=== PATIENT | male | born 1940 | race Caucasian/White ===

== ENCOUNTER 2023-11-02 10:02 | Day surgery (SDC) | payer MEDICARE ==
[~2023-11-02] VITALS: Ht 165.1 cm; Wt 77.8 kg
[~2023-11-02 10:02] MED LIST: ECOT81TA5 PO; LEVO75TA4 PO; LISI20TA33 PO; PHENYLEPHRINE 10% OPHTH SOL 5ML OS PRN; SIMV20TA22 PO; TAMS1CAP17 PO; fentaNYL 100 MCG/2 ML INJECTION As Ordered ONE
[2023-11-02] MEDS: OFLOXACIN 0.3 % (OCUFLOX) OPTH SOL 5ML OS ONE (11:38)
[2023-11-02] MEDS: LIDOCAINE 3.5 % 1ML OPHTH TOPICAL GEL OU ONE (11:39)
[2023-11-02] MEDS: ATROPINE SULFATE 1% OPHTH SOLN 2ML BTL OS SCH (11:39)
[2023-11-02] MEDS: PHENYLEPHRINE 2.5% OPHTH SOL 2ML OS SCH (11:39)
[2023-11-02] MEDS: TROPICAMIDE 1% OPHTH SOLN 15ML OS SCH (11:39)
[2023-11-02] MEDS: CEFUROXIME 1MG/0.1ML INTRACAMERAL INJ As Ordered ONE (12:30)
[2023-11-02] MEDS: LIDOCAINE 1% SDV 5ML VIAL As Ordered ONE (12:30)
[2023-11-02] MEDS: BSS IRRIG/VANCO(10MG)/TOBRA(5MG)/EPINEPH(1:1000-0.5CC)500ML BAG-ORONLY As Ordered ONE (12:30)
[2023-11-02 12:45] VITALS: BP 142/75; TEMP 97.4; O2SAT 99
== END 2023-11-02 13:00 | disposition home or self-care (01) ==
LOC: M SDC 10:02
PROVIDERS: ATTEND Ophthalmology
DX: H25.12 Age-related nuclear cataract, left eye (principal); I10 Essential (primary) hypertension; E78.5 Hyperlipidemia, unspecified; E03.9 Hypothyroidism, unspecified; J44.9 Chronic obstructive pulmonary disease, unspecified; Z79.899 Other long term (current) drug therapy
CPT/HCPCS: 66984; J0697; J3010; V2632

== ENCOUNTER 2023-11-09 11:42 | Day surgery (SDC) | payer MEDICARE ==
[~2023-11-09] VITALS: Ht 165.1 cm; Wt 77.9 kg
[~2023-11-09 11:42] MED LIST changes: +PHENYLEPHRINE 10% OPHTH SOL 5ML OD PRN; -PHENYLEPHRINE 10% OPHTH SOL 5ML OS PRN; -fentaNYL 100 MCG/2 ML INJECTION As Ordered ONE
[2023-11-09] MEDS ORDERED: MIDAZOLAM INJ 2MG/2ML VIAL As Ordered ONE (13:13)
[2023-11-09] MEDS ORDERED: fentaNYL 100 MCG/2 ML INJECTION As Ordered ONE (13:14)
[2023-11-09] MEDS: OFLOXACIN 0.3 % (OCUFLOX) OPTH SOL 5ML OD ONE (13:30)
[2023-11-09] MEDS: ATROPINE SULFATE 1% OPHTH SOLN 2ML BTL OD SCH (13:49)
[2023-11-09] MEDS: LIDOCAINE 3.5 % 1ML OPHTH TOPICAL GEL OU ONE (13:49)
[2023-11-09] MEDS: PHENYLEPHRINE 2.5% OPHTH SOL 2ML OD SCH (13:49)
[2023-11-09] MEDS: TROPICAMIDE 1% OPHTH SOLN 15ML OD SCH (13:49)
[2023-11-09] MEDS: CEFUROXIME 1MG/0.1ML INTRACAMERAL INJ As Ordered ONE (14:14)
[2023-11-09] MEDS: BSS IRRIG/VANCO(10MG)/TOBRA(5MG)/EPINEPH(1:1000-0.5CC)500ML BAG-ORONLY As Ordered ONE (14:14)
[2023-11-09] MEDS: LIDOCAINE 1% SDV 5ML VIAL As Ordered ONE (14:15)
[2023-11-09 14:30] VITALS: BP 133/78; TEMP 97.3; O2SAT 95
== END 2023-11-09 14:53 | disposition home or self-care (01) ==
LOC: M SDC 11:42
PROVIDERS: ATTEND Ophthalmology
DX: H25.11 Age-related nuclear cataract, right eye (principal); I10 Essential (primary) hypertension; E03.9 Hypothyroidism, unspecified; E78.00 Pure hypercholesterolemia, unspecified; Z79.899 Other long term (current) drug therapy; Z79.82 Long term (current) use of aspirin; Z79.890 Hormone replacement therapy; Z98.42 Cataract extraction status, left eye; Z96.1 Presence of intraocular lens
CPT/HCPCS: 66984; J0697; J2250; J3010; V2632

== ENCOUNTER → 2025-01-08 | Outpatient (CLI) | payer MEDICARE ==
[~2025-01-08] MED LIST changes: +AMIO100T4; +CALCTAB38 PO; +CEFU1TAB22; +COLA100C5 PO; +FINA5TAB2; +METO1TAB87; +MIDO5TA; +OXYC-517 PO; -PHENYLEPHRINE 10% OPHTH SOL 5ML OD PRN; +POLY17PO10 PO; +PRAV20TA78; +SPIR-10; +TAMS1CAP17; +THERTAB52 PO
== END ==
LOC: M RAD 16:23
PROVIDERS: ATTEND Student in an Organized Health Care Education/Training Program
DX: R91.8 Other nonspecific abnormal finding of lung field (principal); J90 Pleural effusion, not elsewhere classified

== ENCOUNTER 2025-01-15 02:59 | Inpatient (IN) | payer MEDICARE ==
[~2025-01-15] VITALS: Ht 162.6 cm; Wt 71.4 kg
[~2025-01-15 02:59] MED LIST changes: +AMIO100T4 PO; +FINA5TAB2 PO; +METO1TAB87 PO; +MIDO5TA PO; +PRAV20TA78 PO; +SPIR-10 PO
[2025-01-15] MEDS: LEVOTHYROXINE 75 MCG TABLET (0.075 MG) PO SCH (06:00)
[2025-01-15 06:54] LABS: BASO # 0.0 10^3/uL (0.0-0.2); BASO % 0.2 % (0.0-1.0); EOS # 0.0 10^3/uL (0.0-0.5); EOS % 0.3 % (0.0-3.0); LYMPH # 0.8 10^3/uL (1.5-5.0); LYMPH % 9.3 % (24.0-44.0); MONO # 0.5 10^3/uL (0.0-0.8); MONO % 5.4 % (2.0-8.0); NEUTROPHILS # 7.3 10^3/uL (1.5-8.5); NEUTROPHILS % 84.3 % (36.0-66.0); PLATELET COUNT, AUTOMATED 307 10^3/uL (150-450)
[2025-01-15 07:06] LABS: CK-MB VALUE MASS 1.1 NG/ML (<3.6)
[2025-01-15 07:07] LABS: ALT/SGPT 13.0 U/L (7.0-40); AST/SGOT 21.0 U/L (<34); CALCIUM LEVEL 8.8 MG/DL (8.3-10.6); CARBON DIOXIDE LEVEL 25.0 MMOL/L (20-31); CHLORIDE LEVEL 99.0 MMOL/L (98-107); CREATININE FOR GFR 1.16 MG/DL (0.70-1.30); GLOMERULAR FILTRATION RATE 61.7 (>35); MAGNESIUM LEVEL 1.7 MG/DL (1.8-2.4); POTASSIUM SERUM 4.8 MMOL/L (3.5-5.1); SODIUM LEVEL 134.0 MMOL/L (136-145)
[2025-01-15 07:08] LABS: CPK CREATINE PHOSPHOKINASE 20.0 U/L (46-171); MB/CK RELATIVE INDEX 5.5 (< OR =4)
[2025-01-15 08:31] LABS: INR 0.99
[2025-01-15 08:34] LABS: CK-MB VALUE MASS 1.2 NG/ML (<3.6); CPK CREATINE PHOSPHOKINASE 18.0 U/L (46-171); MB/CK RELATIVE INDEX 6.66 (< OR =4)
[2025-01-15] MEDS ORDERED: ISOVUE-370 76% 100 ML VIAL As Ordered ONE (08:38)
[2025-01-15] MEDS: PANTOPRAZOLE 40MG VIAL IV ONE (09:57)
[2025-01-15] MEDS: NS (Normal Saline) 0.9% 1,000 ML IV SCH (09:57)
[2025-01-15] MEDS: SUCRALFATE SUSP 1GM/10ML UD PO ONE (09:57)
[2025-01-15 10:11] LABS: VENOUS BASE EXCESS 1.8 (-2.0-2.0); VENOUS HCO3 26.9 MMOL/L (23.0-27.0); VENOUS O2 SATURATION 72.6 % (60.0-80.0); VENOUS PARTIAL PRESSURE CO2 44.3 mmHg (38.0-50.0); VENOUS PARTIAL PRESSURE O2 37.5 mmHg (30.0-50.0); VENOUS PH 7.402 UNITS (7.330-7.430); VENOUS STANDARD HCO3 25.6 MMOL/L; VENOUS TOTAL CO2 28.3 MMOL/L (24.0-28.0)
[2025-01-15] MEDS: IPRATROPIUM 0.5 MG/ALBUTEROL 2.5 MG INH SOL UD 3 ML NEB PRN (10:22)
[2025-01-15] MEDS ORDERED: TAMS-18 PO (10:23)
[2025-01-15] MEDS ORDERED: METO25TA4 PO (10:23)
[2025-01-15] MEDS ORDERED: OXYC-517 PO (10:23)
[2025-01-15] MEDS ORDERED: APAP325T4 PO (10:23)
[2025-01-15] MEDS ORDERED: SPIR-10 PO (10:23)
[2025-01-15] MEDS ORDERED: FINA5TAB2 PO (10:23)
[2025-01-15] MEDS ORDERED: MULTTAB61 PO (10:23)
[2025-01-15] MEDS ORDERED: PRAV20TA78 PO (10:23)
[2025-01-15] MEDS ORDERED: AMIO100T4 PO (10:23)
[2025-01-15] MEDS ORDERED: CALCTAB89 PO (10:23)
[2025-01-15] MEDS ORDERED: MIDO5TA PO (10:23)
[2025-01-15] MEDS ORDERED: HOME MED LIST COMPLETE! XX SCH (10:25)
[2025-01-15 11:28] LABS: CHOLESTEROL LEVEL 115.0 MG/DL (<200); CHOLESTEROL RISK RATIO 2.71 (<5); LDL CHOLESTEROL 54.2 MG/DL (<100); NON-HDL-C 72.6 MG/DL; TRIGLYCERIDES LEVEL 92.0 MG/DL (<150)
[2025-01-15] MEDS ORDERED: IPRATROPIUM 0.5 MG/ALBUTEROL 2.5 MG INH SOL UD 3 ML NEB PRN (11:45)
[2025-01-15] MEDS: SUCRALFATE SUSP 1GM/10ML UD PO SCH (12:00)
[2025-01-15] MEDS: SPIRONOLACTONE 25 MG TAB PO SCH (12:28)
[2025-01-15] MEDS: TAMSULOSIN 0.4 MG CAP PO SCH (12:28)
[2025-01-15] MEDS: ASPIRIN 81 MG ENTERIC TABLET PO SCH (12:29)
[2025-01-15] MEDS: FINASTERIDE 5 MG TAB PO SCH (12:30)
[2025-01-15 12:40] LABS: ESTIMATED AVERAGE GLUCOSE 117.0 MG/DL (60-110)
[2025-01-15] MEDS: AMIODARONE 100 MG TABLET PO SCH (13:25)
[2025-01-15] MEDS: IPRATROPIUM 0.5 MG/ALBUTEROL 2.5 MG INH SOL UD 3 ML NEB SCH (13:53)
[2025-01-15] MEDS: MIDODRINE 5 MG TAB PO SCH (14:06)
[2025-01-15] MEDS ORDERED: PROHANCE 279.3MG/ML 15ML VIAL As Ordered ONE (18:12)
[2025-01-15] MEDS: PRAVASTATIN 20 MG TAB PO SCH (20:09)
[2025-01-15] MEDS: PANTOPRAZOLE 40MG VIAL IV SCH (20:09)
[2025-01-15] MEDS: METOPROLOL TART 12.5 MG PER 1/2 TAB PO SCH (20:29)
[2025-01-15 21:42] VITALS: BP 113/59; TEMP 97.4; O2SAT 91
[2025-01-15] MEDS: HEPARIN SOD 5000 UNITS/ML 1 ML VIAL/SYRINGE SQ SCH (22:15)
[2025-01-15 23:30] VITALS: BP 100/54; TEMP 97.1; O2SAT 92
[2025-01-16 04:22] VITALS: BP 106/52; TEMP 97.6; O2SAT 91
[2025-01-16 05:40] VITALS: BP 109/59
[2025-01-16 05:42] LABS: PLATELET COUNT, AUTOMATED 226 10^3/uL (150-450)
[2025-01-16 06:19] LABS: ALT/SGPT 13.0 U/L (7.0-40); AST/SGOT 16.0 U/L (<34); CALCIUM LEVEL 7.9 MG/DL (8.3-10.6); CARBON DIOXIDE LEVEL 23.0 MMOL/L (20-31); CHLORIDE LEVEL 100.0 MMOL/L (98-107); CREATININE FOR GFR 1.2 MG/DL (0.70-1.30); GLOMERULAR FILTRATION RATE 59.3 (>35); POTASSIUM SERUM 4.3 MMOL/L (3.5-5.1); SODIUM LEVEL 134.0 MMOL/L (136-145)
[2025-01-16 07:43] VITALS: BP 108/58; TEMP 97.3; O2SAT 92
[2025-01-16 08:35] VITALS: BP 108/58
[2025-01-16] MEDS: ACETAMINOPHEN 325 MG TAB PO PRN (08:46)
[2025-01-16 12:21] VITALS: BP 108/59; TEMP 97.6; O2SAT 92
[2025-01-16 12:50] LABS: PH BODY FLUID 7.408 UNITS (NOT ESTABLISHED); SOURCE, BODY FLUID pH PLEURAL
[2025-01-16 12:55] LABS: APPEARANCE, BODY FLUID CLOUDY (CLEAR); PLEURAL FL COLOR AMBER (COLORLESS); SOURCE, BODY FLUID PLEURAL
[2025-01-16] MEDS ORDERED: SALIVA SUBSTITUTE BTL MT PRN (15:00)
[2025-01-16] MEDS ORDERED: POLYVINYL ALCOHOL OPHTH SOLN 15ML (LIQUITEARS) OU PRN (15:00)
[2025-01-16] MEDS ORDERED: LORazepam 0.5 MG TAB PO PRN (15:00)
[2025-01-16] MEDS ORDERED: ONDANSETRON 4MG ORAL DISINTEGRATING TAB PO PRN (15:00)
[2025-01-16] MEDS ORDERED: MORPHINE 10 MG/0.5 ML ORAL CONCENTRATE SOLUTION U/D SL PRN (15:00)
[2025-01-16] MEDS ORDERED: ATROPINE SULFATE 1% OPHTH SOLN 2 ML BTL SL PRN (15:00)
[2025-01-16] MEDS ORDERED: NOREPINEPHRINE 4 MG IN D5W 250 ML IVBAG (16 MCG/ML) As Ordered ONE (19:12)
[2025-01-17] MEDS: SENNA 8.6 MG TAB PO PRN (05:20)
[2025-01-17] MEDS ORDERED: IPRATROPIUM 0.5 MG/ALBUTEROL 2.5 MG INH SOL UD 3 ML NEB PRN (10:25)
[2025-01-17] MEDS ORDERED: ACETAMINOPHEN 325 MG TAB PO PRN (10:25)
[2025-01-19] MEDS: HYOSCYAMINE SULFATE 0.125 MG SUBL TABLET SL PRN (11:55)
[2025-01-20] MEDS: MIRALAX *UNIT DOSE* 17 GM PACKET PO PRN (16:24)
[2025-01-21] MEDS ORDERED: ONDA-282 PO (15:17)
[2025-01-21] MEDS ORDERED: ZOLP-532 PO (15:17)
[2025-01-21] MEDS ORDERED: MIRA33506 PO (15:17)
[2025-01-21] MEDS ORDERED: MORP1SOL5 PO (15:17)
[2025-01-21] MEDS ORDERED: HYOS125TA PO (15:17)
[2025-01-21] MEDS ORDERED: ATIV1TAB10 PO (15:17)
[2025-01-21] MEDS ORDERED: SUCR1ORA20 PO (15:17)
[2025-01-21] MEDS ORDERED: SUCR1TAB56 PO (18:30)
== END 2025-01-21 16:39 | disposition hospice, home (50) | DRG 180 ==
LOC: M ED 02:59 → M ED INP 10:03 → M PCU 21:36
PROVIDERS: ADMIT Internal Medicine; ATTEND Internal Medicine
PROC: 0W993ZZ Drainage of Right Pleural Cavity, Percutaneous Approach (ICD-10-PCS; principal; 2025-01-16 12:00)
DX: C34.11 Malignant neoplasm of upper lobe, right bronchus or lung (principal); I63.9 Cerebral infarction, unspecified; J98.11 Atelectasis; J91.0 Malignant pleural effusion; C79.31 Secondary malignant neoplasm of brain; R13.10 Dysphagia, unspecified; I48.0 Paroxysmal atrial fibrillation; N40.1 Benign prostatic hyperplasia with lower urinary tract symptoms; E03.9 Hypothyroidism, unspecified; I95.9 Hypotension, unspecified; G89.3 Neoplasm related pain (acute) (chronic); Z51.5 Encounter for palliative care; Z79.890 Hormone replacement therapy; Z79.899 Other long term (current) drug therapy; Z79.82 Long term (current) use of aspirin; Z87.891 Personal history of nicotine dependence

== ENCOUNTER 2025-01-25 19:51 | Inpatient (IN) | payer MEDICARE ==
[~2025-01-25] VITALS: Ht 162.6 cm; Wt 69.1 kg
[~2025-01-25 19:51] MED LIST changes: +APAP325T4 PO; +ATIV1TAB10 PO; +CALCTAB89 PO; +HYOS125TA PO; +METO25TA4 PO; +MIRA33506 PO; +MORP1SOL5 PO; +MULTTAB61 PO; +ONDA-282 PO; +SUCR1ORA20 PO; +SUCR1TAB56 PO; +TAMS-18 PO; +ZOLP-532 PO
[2025-01-25 20:02] VITALS: TEMP 97.9
[2025-01-25] MEDS ORDERED: ONDANSETRON 4MG ORAL DISINTEGRATING TAB PO PRN (23:25)
[2025-01-25] MEDS ORDERED: BISACODYL 10 MG SUPP PR PRN (23:25)
[2025-01-25] MEDS ORDERED: ACETAMINOPHEN 325 MG TAB PO PRN (23:25)
[2025-01-25 23:30] VITALS: BP 92/53
[2025-01-26] MEDS ORDERED: HOME MED LIST COMPLETE! XX SCH (01:20)
[2025-01-26] MEDS: LEVOTHYROXINE 75 MCG TABLET (0.075 MG) PO SCH (05:16)
[2025-01-26] MEDS: AMIODARONE 100 MG TABLET PO SCH (09:07)
[2025-01-26] MEDS: SUCRALFATE 1 GM TAB PO SCH (09:07)
[2025-01-26] MEDS: MORPHINE 10 MG/0.5 ML ORAL CONCENTRATE SOLUTION U/D SL PRN ×2 (10:41→21:14)
[2025-01-26] MEDS: LORazepam 1 MG TAB PO PRN (10:42)
[2025-01-26] MEDS: OLANZapine ORAL DISINTEGRATING TAB 5MG PO ONE (15:24)
[2025-01-26] MEDS ORDERED: OLANZapine ORAL DISINTEGRATING TAB 5MG PO PRN (20:00)
[2025-01-27] MEDS: SCOPOLAMINE 1MG TRANSDERMAL PATCH TOP PRN (10:19)
[2025-01-27] MEDS: HYOSCYAMINE SULFATE 0.125 MG SUBL TABLET PO PRN (10:19)
[2025-01-27] MEDS: ATROPINE SULFATE 1% OPHTH SOLN 2 ML BTL SL PRN (14:16)
[2025-01-27] MEDS: HALOPERIDOL 2 MG TAB PO PRN (14:16)
[2025-01-27] MEDS ORDERED: MORPHINE 10 MG/ML 1 ML VIAL IV PRN (15:55)
[2025-01-27] MEDS: MORPHINE SULF IN 0.9% NACL 100 MG in IV 1 EA IV SCH (17:08)
== END 2025-01-27 22:20 | disposition expired | DRG 951 ==
LOC: M ED 19:51 → M ED INP 23:23 → M MS5PR 01-26 00:15
PROVIDERS: ADMIT Internal Medicine; ATTEND General Practice
DX: Z51.5 Encounter for palliative care (principal); G92.8 Other toxic encephalopathy; C34.90 Malignant neoplasm of unspecified part of unspecified bronchus or lung; C79.9 Secondary malignant neoplasm of unspecified site; R53.1 Weakness; R29.6 Repeated falls; E03.9 Hypothyroidism, unspecified; N40.0 Benign prostatic hyperplasia without lower urinary tract symptoms; I48.91 Unspecified atrial fibrillation; Z79.890 Hormone replacement therapy; Z66 Do not resuscitate; Z79.899 Other long term (current) drug therapy